=== PATIENT | female | born 1955 | race Caucasian/White ===

== ENCOUNTER → 2016-12-04 | Outpatient (REF) | payer BC | LOC: M SFHCWAGY 11:45 | PROVIDERS: ATTEND Nurse Practitioner Women's Health | DX: R39.15 Urgency of urination (principal); R35.0 Frequency of micturition ==

== ENCOUNTER → 2017-08-28 | Outpatient (REF) | payer BC | LOC: M SFHCWAGY 08:56 | PROVIDERS: ATTEND Nurse Practitioner Women's Health | DX: Z12.4 Encounter for screening for malignant neoplasm of cervix (principal) ==

== ENCOUNTER → 2017-08-29 | Outpatient (CLI) | payer BC ==
--- NOTE | 2017-08-29 08:52 | REPMRS ---
Patient History The patient states she had a clinical breast exam in July 2017.Patient is postmenopausal. Family history of prostate cancer in father at age 50 or over and colorectal cancer in mother. Taking estrogen for 2 months. Digital Mammo Screening Bilat: August 29, 2017 - Exam #: [id number] Bilateral CC and MLO view(s) were taken. Technologist: Frances Wells, Technologist Prior study comparison: August 17, 2016, bilateral digital mammo screening bilat performed at [facility]. August 16, 2015, bilateral digital mammo screening bilat performed at [facility]. August 03, 2014, bilateral digital mammo screening bilat performed at [facility]. FINDINGS: The breast tissue is extremely dense which could obscure a lesion on mammography. There is an extremely dense symmetrical pattern of residual fibroglandular tissue. There has been no change in the appearance of the mammogram from the previous studies. There is no interval development of dominant mass, archetectural distortion, or microcalcific cluster suggestive of malignancy. ASSESSMENT: BI-RADS/ACR category 2 mammogram. Benign finding(s). Recommendation Routine screening mammogram of both breasts in 1 year (for women over age 40). This mammogram was interpreted with the aid of an FDA-approved computer-aided dectection system. Electronically Signed By: Tony Moreira MD 08/29/17 0852
== END ==
LOC: M RAD 07:34
PROVIDERS: ATTEND Nurse Practitioner Women's Health
DX: Z12.31 Encounter for screening mammogram for malignant neoplasm of breast (principal)

== ENCOUNTER → 2018-08-29 | Outpatient (CLI) | payer BC, MEDICARE | LOC: M WHC 08:15 | DX: Z12.31 Encounter for screening mammogram for malignant neoplasm of breast (principal); R92.1 Mammographic calcification found on diagnostic imaging of breast; N63.21 Unspecified lump in the left breast, upper outer quadrant; N63.11 Unspecified lump in the right breast, upper outer quadrant; Z78.0 Asymptomatic menopausal state; Z80.0 Family history of malignant neoplasm of digestive organs; Z86.018 Personal history of other benign neoplasm; Z92.23 Personal history of estrogen therapy | CPT/HCPCS: 77067 ==

== ENCOUNTER → 2019-09-01 | Outpatient (CLI) | payer BC, MEDICARE ==
--- NOTE | 2019-09-01 09:19 | REPMRS ---
Patient History The patient states she has not had a clinical breast exam in over a year. Patient is postmenopausal. Family history of prostate cancer at age 50 or over in father, colorectal cancer in mother. 2 benign excisional biopsies of both breasts, 2007. Benign excisional biopsy of the right breast, 1997. Taking estrogen for 6 years 2 months. 3D TOMOSYNTHESIS WAS PERFORMED. The [facility] lifetime risk for breast cancer is 5.5%. Digital Mammo Screening Bilat: September 01, 2019 - Exam #: [id number] Bilateral CC and MLO view(s) were taken. Technologist: Val Franco, Technologist Prior study comparison: August 29, 2018, bilateral digital woman screen mammo, performed at [facility]. August 29, 2017, bilateral digital mammo screening bilat performed at [facility]. FINDINGS: The breast tissue is extremely dense which could obscure a lesion on mammography. There is no evidence of cancer on this mammogram. No significant changes when compared with prior studies. Assessment: BI-RADS/ACR category 2 mammogram. Benign Findings. Recommendation Routine screening mammogram of both breasts in 1 year (for women over age 40). This mammogram was interpreted with the aid of an FDA-approved computer-aided dectection system. Electronically Signed By: Chaitanya Orozco MD 09/01/19 0919
== END ==
LOC: M RAD 07:56
PROVIDERS: ATTEND Nurse Practitioner Women's Health
DX: Z12.31 Encounter for screening mammogram for malignant neoplasm of breast (principal)

== ENCOUNTER → 2020-09-06 | Outpatient (CLI) | payer SELFPAY ==
--- NOTE | 2020-09-06 13:12 | REPMRS ---
Patient History The patient states she had a clinical breast exam in 09/18 Patient is postmenopausal. Family history of prostate cancer at age 50 or over in father, colorectal cancer in mother. 2 benign excisional biopsies of both breasts, 2007. Benign excisional biopsy of the right breast, 1997. Taking estrogen for 7 years 2 months. Digital Woman Screen Mammo: September 06, 2020 - Exam #: [id number] Bilateral CC and MLO view(s) were taken. Technologist: Anu Parks, Technologist Prior study comparison: September 01, 2019, bilateral digital mammo screening bilat, performed at [facility]. August 29, 2018, bilateral digital woman screen mammo performed at [facility]. August 29, 2017, bilateral digital mammo screening bilat, performed at [facility]. FINDINGS: The breast tissue is heterogeneously dense. This may lower the sensitivity of mammography. The Volpara volumetric breast density category is: C. There is a moderate amount of heterogeneously dense fibroglandular tissue which is fairly symmetric. There is no interval development of dominant mass, architectural distortion, or grouped microcalcification typical of malignancy. There has been no change in the appearance of the mammogram from the prior studies. 3-D tomosynthesis shows no additional findings. Assessment: BI-RADS/ACR category 1 mammogram. Negative Mammogram. Recommendation Routine screening mammogram of both breasts in 1 year (for women over age 40). This patient's [facility] Lifetime Breast Cancer RIsk is estimated at 5.2 %. This mammogram was interpreted with the aid of an FDA-approved computer-aided dectection system. Electronically Signed By: Tony Moreira MD 09/06/20 2976
== END ==
LOC: M WHC 10:31
PROVIDERS: ATTEND Nurse Practitioner Women's Health
DX: Z12.31 Encounter for screening mammogram for malignant neoplasm of breast (principal); Z86.018 Personal history of other benign neoplasm

== ENCOUNTER → 2022-01-29 | Outpatient (REF) | payer SELFPAY | LOC: M PLALAB 08:19 | PROVIDERS: ATTEND Advanced Practice Midwife | DX: Z12.4 Encounter for screening for malignant neoplasm of cervix (principal) ==

== ENCOUNTER → 2022-01-29 | Outpatient (CLI) | payer BC, MEDICARE | LOC: M WHC 13:26 | PROVIDERS: ATTEND Advanced Practice Midwife | DX: Z12.31 Encounter for screening mammogram for malignant neoplasm of breast (principal) ==

== ENCOUNTER 2023-02-04 08:31 | Day surgery (SDC) | payer MEDICARE ==
[~2023-02-04] VITALS: Ht 162.6 cm; Wt 61.7 kg
[~2023-02-04 08:31] MED LIST: CALC600T60 PO; ESTR10TA PO; FLUT50SP17; NS 1,000 ML IV ONE; OCUV1CAP4 PO; OMEG10002 PO; RA M200C4 PO; RA N1TAB PO; SYST0.4D2 OP; [UNRECOGNIZED DRUG - OTHER] PO
[2023-02-04] MEDS ORDERED: LIDOCAINE 2% 100MG/5ML SDV (FOR ANES.) As Ordered ONE (10:02)
[2023-02-04] MEDS ORDERED: propofoL 200 MG/20 ML VIAL As Ordered ONE (10:02)
[2023-02-04 10:55] VITALS: BP 126/85
== END 2023-02-04 11:07 | disposition home or self-care (01) ==
LOC: M OPP 08:31
PROVIDERS: ATTEND Internal Medicine Gastroenterology
DX: Z86.010 Personal history of colon polyps (principal); K63.89 Other specified diseases of intestine; K57.30 Diverticulosis of large intestine without perforation or abscess without bleeding; Z87.891 Personal history of nicotine dependence; Z79.51 Long term (current) use of inhaled steroids; Z79.899 Other long term (current) drug therapy

== ENCOUNTER → 2023-05-10 | Outpatient (CLI) | payer MEDICARE ==
[~2023-05-10] MED LIST changes: -NS 1,000 ML IV ONE
== END ==
LOC: M WHC 08:14
PROVIDERS: ATTEND Advanced Practice Midwife
DX: Z12.31 Encounter for screening mammogram for malignant neoplasm of breast (principal)

== ENCOUNTER → 2024-07-24 | Outpatient (CLI) | payer MEDICARE ==
[~2024-07-24] MED LIST changes: -FLUT50SP17; +FLUTISP
== END ==
LOC: M WHC 10:12
PROVIDERS: ATTEND Advanced Practice Midwife
DX: Z12.31 Encounter for screening mammogram for malignant neoplasm of breast (principal); R92.333 Mammographic heterogeneous density, bilateral breasts

== ENCOUNTER → 2024-12-03 | Outpatient (CLI) | payer MEDICARE ==
[2024-12-03 18:43] LABS: BLOOD UREA NITROGEN 16 MG/DL (9-23); CALCIUM LEVEL 9.4 MG/DL (8.3-10.6); CARBON DIOXIDE LEVEL 28 MMOL/L (20-31); CHLORIDE LEVEL 107 MMOL/L (98-107); CREATININE FOR GFR 0.66 MG/DL (0.55-1.30); GLOMERULAR FILTRATION RATE > 60.0 (>39); GLUCOSE, FASTING 91 MG/DL (74-106); MAGNESIUM LEVEL 2.2 MG/DL (1.8-2.4); PHOSPHORUS LEVEL 4.6 MG/DL (2.4-5.1); POTASSIUM SERUM 4.8 MMOL/L (3.5-5.1); PTH INTACT 50.3 PG/ML (18.5-88.0); SODIUM LEVEL 144 MMOL/L (136-145)
[2024-12-03 18:44] LABS: TOTAL 25(OH) VITAMIN D 46.6 NG/ML (20.0-100.0)
== END ==
LOC: M WUC 11:18
PROVIDERS: ATTEND Nurse Practitioner Family
DX: M81.0 Age-related osteoporosis without current pathological fracture (principal)

== ENCOUNTER 2025-07-27 10:24 | Emergency (ER) | payer MEDICARE ==
[~2025-07-27] VITALS: Ht 157.5 cm; Wt 59.8 kg
[2025-07-27 13:46] LABS: BASO # 0.1 10^3/uL (0.0-0.2); BASO % 1.0 % (0.0-1.0); EOS # 0.1 10^3/uL (0.0-0.5); EOS % 0.5 % (0.0-3.0); LYMPH # 2.2 10^3/uL (1.5-5.0); LYMPH % 23.8 % (24.0-44.0); MONO # 0.6 10^3/uL (0.0-0.8); MONO % 5.9 % (2.0-8.0); NEUTROPHILS # 6.4 10^3/uL (1.5-8.5); NEUTROPHILS % 68.4 % (36.0-66.0); PLATELET COUNT, AUTOMATED 359 10^3/uL (150-450)
[2025-07-27 14:17] LABS: CALCIUM LEVEL 9.5 MG/DL (8.3-10.6); CARBON DIOXIDE LEVEL 28 MMOL/L (20-31); CHLORIDE LEVEL 105 MMOL/L (98-107); CK-MB VALUE MASS 1.5 NG/ML (<3.6); CREATININE FOR GFR 0.62 MG/DL (0.55-1.30); GLOMERULAR FILTRATION RATE > 90.0 (>39); MAGNESIUM LEVEL 2.2 MG/DL (1.8-2.4); POTASSIUM SERUM 4.1 MMOL/L (3.5-5.1); SODIUM LEVEL 142 MMOL/L (136-145)
[2025-07-27 14:22] LABS: CPK CREATINE PHOSPHOKINASE 50 U/L (34-145); MB/CK RELATIVE INDEX 3.00 (< OR =4)
[2025-07-27 17:42] LABS: CK-MB VALUE MASS 1.3 NG/ML (<3.6)
[2025-07-27 17:43] LABS: CPK CREATINE PHOSPHOKINASE 55.0 U/L (34-145); MB/CK RELATIVE INDEX 2.36 (< OR =4)
[2025-07-27 19:10] LABS: APPEARANCE, URINE CLEAR (CLEAR); BACTERIA, URINE AUTO NEGATIVE (NEGATIVE); BILIRUBIN, URINE AUTO NEGATIVE (NEGATIVE); BLOOD, URINE BLOOD NEGATIVE (NEGATIVE); GLUCOSE, URINE (UA) AUTO NEGATIVE (NEGATIVE); KETONE, URINE AUTO TRACE mg/dL (NEGATIVE); LEUKOCYTE ESTERASE, URINE AUTO 1+ (NEGATIVE); MUCUS, URINE SMALL (NEGATIVE); NITRITE, URINE AUTO NEGATIVE (NEGATIVE); PROTEIN, URINE AUTO NEGATIVE (NEGATIVE); RBC, URINE AUTO 1 /HPF (0-3); SPECIFIC GRAVITY URINE AUTO 1.010 (1.002-1.035); SQUAMOUS EPITHELIAL CELL UR AU 0 /HPF (0-6); UROBILINOGEN, URINE AUTO 0.2 mg/dL (0.0-2.0); WBC, URINE AUTO 6 /HPF (0-3)
[2025-07-27 21:03] VITALS: BP 146/71; TEMP 97; O2SAT 98
[2025-07-27] MEDS: ASPIRIN 81 MG CHEWABLE TABLET PO ONE (21:07)
== END 2025-07-27 21:20 | disposition home or self-care (01) ==
LOC: M ED 10:24
DX: R42 Dizziness and giddiness (principal); I67.82 Cerebral ischemia; F10.10 Alcohol abuse, uncomplicated; Z79.899 Other long term (current) drug therapy

== ENCOUNTER → 2025-08-20 | Outpatient (CLI) | payer MEDICARE | LOC: M WHC 10:12 | PROVIDERS: ATTEND Advanced Practice Midwife | DX: Z12.31 Encounter for screening mammogram for malignant neoplasm of breast (principal) ==